=== PATIENT | female | born 1975 | race Caucasian/White ===

== ENCOUNTER 2018-03-28 19:28 | Emergency (ER) | payer MEDICAID, OTHER ==
[2018-03-28] MEDS: ADENOSINE 6 MG INJ IV (21:51)
[2018-03-28] MEDS: SOD CHLORIDE 0.9% 1,000 ML IV (21:52)
== END 2018-03-28 23:30 | disposition home or self-care (01) ==
LOC: E/R 19:28
DX: I47.1 Supraventricular tachycardia (principal); Z87.891 Personal history of nicotine dependence
CPT/HCPCS: 93005; 96374; 99284-25

== ENCOUNTER 2018-07-04 15:23 | Emergency (ER) | payer MEDICAID ==
[2018-07-04] MEDS: ADENOSINE 3 MG/ML SYRINGE IV (16:04)
[2018-07-04] MEDS: ADENOSINE 6 MG INJ IV (16:05)
[2018-07-04 16:53] LABS: ADD UMIC NO; UR ASCORBIC ACID NEGATIVE (NEGATIVE); UR BACTERIA FEW /HPF (NONE SEEN); UR BILIRUBIN (Dip) NEGATIVE (NEGATIVE); UR BLOOD (Dip) NEGATIVE (NEGATIVE); UR CLARITY SLIGHTLY CLOUDY (CLEAR); UR COLOR YELLOW (YELLOW); UR GLUCOSE (Dip) NEGATIVE (NEGATIVE); UR KETONES (Dip) NEGATIVE (NEGATIVE); UR LEUKOCYTE ESTERASE (Dip) NEGATIVE Leu/ul (NEGATIVE); UR NITRITE (Dip) NEGATIVE (NEGATIVE); UR RBC 1 /HPF (0-5); UR SPECIFIC GRAVITY (Dip) 1.017 (1.003-1.030); UR TOTAL PROTEIN (Dip) NEGATIVE (NEGATIVE); UR UROBILINOGEN (Dip) NEGATIVE (NEGATIVE); UR WBC 3 /HPF (0-5)
== END 2018-07-04 17:47 | disposition home or self-care (01) ==
LOC: E/R 15:23
DX: I47.1 Supraventricular tachycardia (principal); Z87.891 Personal history of nicotine dependence
CPT/HCPCS: 81001; 81003; 93005; 96374; 99284-25